=== PATIENT | female | born 1935 | race Caucasian/White ===

== ENCOUNTER → 2022-12-07 | Outpatient (CLI) | payer MEDICARE ==
--- NOTE | 2022-12-07 13:07 | XR ---
EXAMINATION TYPE: XR chest 2V DATE OF EXAM: 12/07/2022 COMPARISON: NONE HISTORY: Presurgical study. TECHNIQUE: Frontal and lateral views of the chest are obtained. FINDINGS: Elevated and eventrated anterior aspect right hemidiaphragm. Cannot exclude diaphragm paral ysis without old prior comparison. [id number] biapical pleural/parenchymal scarring. There is n o suspicious focal air space opacity, pleural effusion, or pneumothorax seen. The cardiac silhouette size is within normal limits with atherosclerotic change in the thoracic aorta. The osseous struct ures are somewhat demineralized. IMPRESSION: As above.
[2022-12-07 21:07] LABS: African American GFR (CKD) 77.9 (60.0-200.0); Albumin 4.5 g/dL (3.8-4.9); Albumin/Globulin Ratio 2.65 (1.60-3.17); BUN/Creat Ratio 14.5 Ratio (12.00-20.00); Basophils # (A) 0.05 X 10*3/uL (0.00-0.10); Basophils % (A) 0.8 %; Blood Urea Nitrogen 11.6 mg/dL (9.0-27.0); Eosinophils # (A) 0.29 X 10*3/uL (0.04-0.35); Eosinophils % (A) 4.4 %; Globulin 1.7 g/dL (1.6-3.3); HCT 44.8 % (37.2-46.3); HGB 13.4 g/dL (12.0-15.0); Immature Grans, Automated 0.3 %; Lymphocytes # (A) 1.66 X 10*3/uL (0.90-5.00); Lymphocytes % (A) 25.1 %; MCH 28.5 pg (27.0-32.0); MCHC 29.9 g/dL (32.0-37.0); MCV 95.3 fL (80.0-97.0); Mean Platelet Volume 9.8 fL (9.5-12.2); Monocytes # (A) 0.53 X 10*3/uL (0.20-1.00); NRBC Per 100 WBC 0 /100 WBCS (0.0-0.0); Neutrophils # (A) 4.07 X 10*3/uL (1.80-7.70); Neutrophils % (A) 61.4 %; Non-African American GFR(CKD) 67.2 (60.0-200.0); Platelet Count 318 X 10*3/uL (140-440); Potassium 4.9 mmol/L (3.5-5.5); RDW 13.5 % (11.5-14.5); Total Bilirubin 0.4 mg/dL (0.30-1.20); Total Protein 6.2 g/dL (6.2-8.2); WBC 6.62 X 10*3/uL (4.50-10.00)
[2022-12-07 23:57] LABS: INR 0.9 (<1.2); Prothrombin Time 9.8 sec (9.0-12.0)
[2022-12-08 01:10] LABS: Appearance,Urine Clear (Clear); Bilirubin,Urine Negative (Negative); Blood,Urine Negative (Negative); Color,Urine Yellow (Yellow); Ketones,Urine Negative (Negative); Nitrite,Urine Negative (Negative); Specific Gravity,Urine 1.007 (1.001-1.030); Urobilinogen,Urine 0.2 (0.2,1.0)
== END | disposition home or self-care (01) ==
LOC: LABPAT 11:36
PROVIDERS: ATTEND Orthopaedic Surgery Orthopaedic Surgery of the Spine
DX: Z01.818 Encounter for other preprocedural examination (principal); S22.080A Wedge compression fracture of T11-T12 vertebra, initial encounter for closed fracture; Y99.9 Unspecified external cause status; R00.1 Bradycardia, unspecified; R94.31 Abnormal electrocardiogram [ECG] [EKG]
CPT/HCPCS: 71046; 80053; 81003; 85025; 85610; 85730; 93005

== ENCOUNTER 2022-12-18 06:15 | Day surgery (SDC) | payer BC, MEDICARE ==
[2022-12-18] MEDS ORDERED: LACTATED RINGERS 1,000 ML IV ONE (06:47)
[2022-12-18] MEDS ORDERED: ONDANSETRON 4 MG/2 ML VIAL ONE (07:09)
[2022-12-18] MEDS ORDERED: ONDANSETRON 4 MG/2 ML VIAL IVP ONE (07:10)
[2022-12-18] MEDS ORDERED: LIDOCAINE 0.5%-EPI 1:200,000 50 ML VIAL SQ ONE (07:30)
[2022-12-18] MEDS ORDERED: IOPAMIDOL M200 10 ML VIAL MISCELLANE ONE (07:30)
[2022-12-18] MEDS ORDERED: PROPOFOL 10 MG/ML 20 ML VIAL IV ONE (07:32)
[2022-12-18] MEDS ORDERED: fentaNYL (PF) 50 MCG/ML 2 ML AMP ONE (07:32)
[2022-12-18] MEDS ORDERED: GLYCOPYRROLATE 0.2 MG/ML 2 ML VIAL ONE (07:32)
[2022-12-18] MEDS ORDERED: SUCCINYLCHOLINE CHLORIDE 200 MG/10 ML VIAL IV ONE (07:32)
[2022-12-18] MEDS ORDERED: PHENYLEPHRINE-0.9% NACL SYG 1,000 MCG/10 ML SYRINGE ONE (07:32)
[2022-12-18] MEDS ORDERED: HYDROmorphone 0.5 MG/0.5 ML SYRINGE IVP PRN (09:06)
[2022-12-18] MEDS ORDERED: HYDROcodone/APAP 5-325MG 1 EACH TAB PO PRN (09:06)
[2022-12-18] MEDS ORDERED: BENZOCAINE/MENTHOL LOZENG 1 EACH LOZENGE MUCOUS MEM PRN (09:06)
[2022-12-18] MEDS ORDERED: HYDROmorphone 0.5 MG/0.5 ML SYRINGE IVP ONE ×3 (09:06→10:04)
[2022-12-18] MEDS ORDERED: ONDANSETRON 4 MG/2 ML VIAL IVP PRN (09:07)
[2022-12-18] MEDS ORDERED: ACETAMINOPHEN TAB 325 MG TAB PO PRN (09:07)
--- NOTE | 2022-12-18 09:17 | P.OP ---
Date of Procedure: 12/18/22 Preoperative Diagnosis: T11 and T12 vertebral body compression fracture, subacute traumatic Thoracolumbar back pain Status post fall Osteoporosis Postoperative Diagnosis: Same Anesthesia: GETA Pathology: other (T11 and T12 vertebral body biopsies sent separately to pathology) Condition: stable Disposition: PACU Description of Procedure: BRIEF OPERATIVE NOTE Preoperative Diagnosis: T11 and T12 vertebral body compression fracture, subacute traumatic Thoracolumbar back pain Status post fall Osteoporosis Postoperative Diagnosis: Same Procedure: Kyphoplasty at T11 and T12 Vertebral body biopsy at T11 and T12 Use of biplanar fluoroscopic guidance Surgeon: Dr. Green Vegetable Specker: Rene Servin is present throughout the entire the case persistence during positioning, dissection, exposure, visualization, and all crucial elements of the case as well as closure. Anesthesia: General anesthesia Estimated blood loss: Less than 10 mL Specimen: Vertebral body biopsy of T11 and T12 separately sent to pathology in formalin Complications: None apparent Components implanted: Bone cement approximately 6 mL at T11 and 3 mL of T12 Disposition: To recovery room in good stable condition. OPERATIVE INDICATIONS The patient has been having issues in their back ever since sustaining an injury. She has been found to have acute-appearing changes at T11 and T12 compression deformities as seen on advanced imaging. She has significant disc degeneration at her lower lumbar spine and degenerative scoliosis and s pondylosis which she had been dealing with it for an extended period however decompression fractures correlated well with a fall that she had recently and new acute pain on history and physical examination. The patient has been through conservative treatment. They attempted conservative care with bracing however they're not having any benefit despite brace use. They continue to have significant pain and debility due to their fracture. We discussed various treatment options including surgery, and the patient wishes to proceed with surgery We discussed the risk, patient's alternatives and benefits of surgery including but not limited to, risk of bleeding risk of infection, risk of need for further surgery, risk of decreased, loss of motion, loss of function, cement extravasation, nerve damage, paralysis, heart attack, blindness and . OPERATIVE SUMMARY After discussing all the risks, patient alternatives and benefits at length, the patient elected to proceed with surgical intervention, signed informed consent, and presented for their procedure. The patient was seen and examined in the preoperative holding area and the surgical site was marked. The patient was given antibiotics and brought to the operating room. The patient was sedated and intubated by anesthesia in standard fashion. The patient was positioned on to the operating room table in a prone position on the appropriate well-padded and well molded bilateral chest rolls. We were careful to pad any bony prominences and pressure points. We were careful to maintain the patient's cervical spine and good neutral alignment and position throughout. We used 2 C-arm machines to establish biplanar fluoroscopic guidance in AP and lateral positions. We were able to localize the fractures appropriately at both T11 and T12. The patient was prepped and draped in a normal standard fashion. An appropriate timeout and keystone protocol performed. We were able to proceed with the surgery. The local wound area was infiltrated with local anesthetic. An incision was made over the lateral aspect of the pedicle over the appropriate levels with a small 2 mm stab incision on the right at T11 and T12. Intraope rative fluoroscopy was taken which showed a marker at the appropriate level at T11 and T12. With the appropriate level positively confirmed, I was able to position a sharp trocar over the lateral aspect of the pedicle. As able to advance the trocar into the pedicle and into the posterior aspect of vertebral body being careful to avoid penetration cephalad caudad or medially. The trocar was placed appropriately into the posterior aspect of vertebral body at the appropriate levels at each of the levels T11 and T12. This was confirmed with C-arm guidance. With the trocar intact I was then able to take a bone biopsy with a biopsy punch or a bony drill. The biopsy specimen was passed off to be sent to pathology in formalin. I was then able to place the kyphoplasty balloon within the vertebral body. The position was checked on C-arm. I was able to inflate the balloon under low pressure and visualization with C-arm. The balloon was well enclosed within the vertebral body. The cement was prepared. With the cement at appropriate working condition the balloons were deflated and removed. I was able to place bony cement with trocar with the cement delivery device under low pressure. It had good fill within the vertebral body. There is no evidence of any extravasation of the cement posteriorly toward the canal. The cement was well contained at the appropriate levels. There was some small extrusion into the disc space at T11 12 and T12-L1 but that did not extend posteriorly toward the canal. The cement was allowed to cure appropriately. The trochars removed and final images were taken on C-arm. This showed the cement at the appropriate levels. We were able to proceed with closure. The wound was cleaned and dried and dressed with the appropriate dressing. The drapes were broken down. The patient was gently rolled back onto their hospital bed being careful to maintain their cervical spine and good neutral alignment and position. They were woken up by anesthesia, extubated, and brought to the recovery room in good stable condition. The patient will be admitted to the hospital for observation and for appropriate postoperative care, medical management and monitoring. We will continue to follow them closely about the postoperative course.
[2022-12-18] MEDS ORDERED: SODIUM CHLORIDE 0.9% 1,000 ML IV ONE ×2 (10:13)
[2022-12-18] MEDS ORDERED: KETOROLAC 15 MG/ML 1 ML VIAL IVP PRN (10:54)
[2022-12-18] MEDS ORDERED: KETOROLAC 15 MG/ML 1 ML VIAL IVP ONE (11:01)
--- NOTE | 2022-12-18 12:44 | FL ---
Fluoroscopy INDICATION: Pain FINDINGS: Fluoroscopy time: 71 seconds. Total dose area product (DAP) in uGy*m?, mGy*cm? (or similar): 7.634 Images obtained: 0. IMPRESSIONS: 1. Documentation of fluoroscopy.
--- NOTE | 2022-12-18 14:54 | XR ---
Fluoroscopy INDICATION: Vertebral plasty FINDINGS: Fluoroscopy time: 53.9 seconds. Total dose area product (DAP) in uGy*m?, mGy*cm? (or similar): 4.0177 Images obtained: 8. IMPRESSIONS: 1. Documentation of fluoroscopy.
[2022-12-18] MEDS: SYMBICORT 80-4.5 MCG INHALER INHALATION SCH (19:13)
[2022-12-18] MEDS: SODIUM CHLORIDE 0.9% 1,000 ML IV SCH ×2 (20:01→22:34)
[2022-12-18] MEDS ORDERED: EZETIMIBE 10 MG TAB PO SCH (21:00)
[2022-12-18] MEDS ORDERED: traMADol 50 MG TAB PO PRN (21:01)
[2022-12-19] MEDS ORDERED: LEVOTHYROXINE 88 MCG TAB PO SCH (06:30)
[2022-12-19 07:33] VITALS: BP 123/62; PULSE 67; RESP 17; TEMP 98
[2022-12-19] MEDS: SYMBICORT 80-4.5 MCG INHALER INHALATION SCH (08:50)
[2022-12-19] MEDS ORDERED: ZINC SULFATE 220 MG CAP PO SCH (09:00)
[2022-12-19] MEDS ORDERED: EZETIMIBE 10 MG TAB PO SCH (09:00)
[2022-12-19] MEDS ORDERED: LACTOBACILLUS ACIDOPH & BULGAR 1 EACH PACKET PO SCH (09:00)
[2022-12-19] MEDS ORDERED: amLODIPine 5 MG TAB PO SCH (09:00)
[2022-12-19] MEDS ORDERED: CHOLECALCIFEROL 25 MCG (1000 IU) TABLET PO SCH (09:00)
[2022-12-19] MEDS ORDERED: ASCORBIC ACID 500 MG TAB PO SCH (09:00)
--- NOTE | 2022-12-19 09:08 | P.DS ---
Providers Date of admission: 12/18/2022 Expected date of discharge: 12/19/22 Attending physician: Jeramy Green Primary care physician: Luis Maradiaga - Discharge Diagnosis(es) (1) Status post kyphoplasty Current Visit: Yes Status: Acute (2) T11 vertebral fracture Current Visit: Yes Status: Acute (3) T12 vertebral fracture Current Visit: Yes Status: Acute (4) Thoracic back pain Current Visit: Yes Status: Acute (5) Status post fall Current Visit: Yes Status: Acute (6) Hearing loss Current Visit: Yes Status: Acute (7) Hyperlipidemia Current Visit: Yes Status: Acute Hospital Course: This is a pleasant 87-year-old female who presented with T11 and T12 compression fracture deformities who failed outpatient conservative therapy. She was admitted for a T11 and T12 kyphoplasty with biopsy. Initially she was experiencing significant spasm in her thoracic spine. The symptoms have significantly improved. Her pain is much better this morning. The patient tolerated the procedure well and did well postoperatively. She is happy with her progress as compared to yesterday. She is dressed and ready for discharge home today. Condition on day of discharge stable. Patient will be discharged home. Patient was cleared preoperatively for surgery by . Patient currently denies any nausea, vomiting, fever, or chills. Patient is eating and voiding freely without difficulty. Patient may shower Optifoam dressing intact. Patient may remove Optifoam dressing in 3 days and shower without a dressing at that time. Patient should refrain from driving until at least after their first follow-up appointment in the office. Patient should avoid excessive bending, lifting, and twisting; no lifting greater than 10 pounds. MAPS was previously reviewed. An "Opiod Start Talking" Form has been signed and placed in the patient's chart. A prescription has been written for tramadol 50 mg, 1 every 4 hours, as needed for acute pain, dispensed #18. She states she takes ropinirole at home for restless leg in the evening. She does not need another muscle relaxing medications. Patient's other medical diagnoses include hyperlipidemia and hearing loss with cochlear implant in place. Physical Exam on day of discharge: Patient is awake, alert, and oriented 3 Vital signs stable Good chest excursion with deep inspiration and expiration Extensor hallucis longus, plantarflexion, and dorsiflexion positive sustained bilateral lower extremities Incision is clean, dry, and intact; no erythema, purulence, or signs of infection Optifoam dressing intact over the thoracic spine No significant pain on palpation around the surgical sites at the thoracic spine Procedures: T11 and T12 kyphoplasty with biopsy Patient Condition at Discharge: Stable Plan - Discharge Summary Discharge Rx Participant: No New Discharge Prescriptions: New traMADol HCl [Ultram] 50 mg PO Q4HR PRN 3 Days #18 tab PRN Reason: Pain No Action Levothyroxine Sodium [Synthroid] 88 mcg PO DAILY Vit D3 (Unknown) 1 tab PO DAILY Ezetimibe [Zetia] 10 mg PO DAILY Vit C(Unknown) 1 tab PO DAILY rOPINIRole HCL [Requip] 0.5 mg PO HS amLODIPine BESYLATE 5 mg PO DAILY Zinc(Unknown) 1 tab PO DAILY Bifidobacterium Infantis [Align] 4 mg PO DAILY Brio 1 puff INHALATION DAILY Discharge Medication List Levothyroxine Sodium [Synthroid] 88 mcg PO DAILY 06/07/14 [History] Bifidobacterium Infantis [Align] 4 mg PO DAILY 12/15/22 [History] Brio 1 puff INHALATION DAILY 12/15/22 [History] Ezetimibe [Zetia] 10 mg PO DAILY 12/15/22 [History] Vit C(Unknown) 1 tab PO DAILY 12/15/22 [History] Vit D3 (Unknown) 1 tab PO DAILY 12/15/22 [History] Zinc(Unknown) 1 tab PO DAILY 12/15/22 [History] amLODIPine BESYLATE 5 mg PO DAILY 12/15/22 [History] rOPINIRole HCL [Requip] 0.5 mg PO HS 12/15/22 [History] traMADol HCl [Ultram] 50 mg PO Q4HR PRN 3 Days #18 tab 12/18/22 [Rx] Follow up Appointment(s)/Referral(s): Jeramy Green DO [Doctor of Osteopathic Medicine] - 01/02/23 3:00 pm Activity/Diet/Wound Care/Special Instructions: Keep site clean. May shower with waterproof Tegaderm intact. Do not soak in a tub. After 72 hours postoperatively, patient May remove dressing and then may shower with area uncovered. Leave glue intact and allow it to fray off on its own. May ambulate as tolerated. Avoid heavy or rigorous activity. No repetitive bending twisting or lifting. No overhead work. Discharge Disposition: HOME SELF-CARE
== END 2022-12-19 09:40 | disposition home or self-care (01) ==
LOC: OR 06:15 → 4SSUR 08:47 → OR 12-19 09:40
PROVIDERS: ATTEND Orthopaedic Surgery Orthopaedic Surgery of the Spine
DX: M80.00XA Age-related osteoporosis with current pathological fracture, unspecified site, initial encounter for fracture (principal); W19.XXXA Unspecified fall, initial encounter; I25.2 Old myocardial infarction; I10 Essential (primary) hypertension; E78.5 Hyperlipidemia, unspecified; J44.9 Chronic obstructive pulmonary disease, unspecified; Z87.891 Personal history of nicotine dependence; E03.9 Hypothyroidism, unspecified; K21.9 Gastro-esophageal reflux disease without esophagitis; Z79.890 Hormone replacement therapy; Z79.899 Other long term (current) drug therapy
CPT/HCPCS: 22513; 22515; 94640 ×2; 97161; 86900; 86901; 86850; 88307; 88311; 72070; C1713; J0330; J0690; J2405; J3010; J1885; J2370; J2704; J1170; Q9966